=== PATIENT | female | born 1985 | race Caucasian/White ===

== ENCOUNTER 2017-07-07 16:53 | Emergency (ER) | payer SELFPAY ==
[~2017-07-07] VITALS: Ht 154.9 cm; Wt 63.6 kg
[2017-07-07] MEDS ORDERED: TAMIFLU 75MG75 MG PO (20:24)
[2017-07-07 20:40] VITALS: BP 136/54; PULSE 77; TEMP 98.3
== END 2017-07-07 21:14 | disposition home or self-care (01) ==
LOC: COL.ER 16:53
DX: J11.1 Influenza due to unidentified influenza virus with other respiratory manifestations (principal); F17.210 Nicotine dependence, cigarettes, uncomplicated; F15.90 Other stimulant use, unspecified, uncomplicated; Z98.51 Tubal ligation status; Z98.890 Other specified postprocedural states
CPT/HCPCS: J2405; J7030